=== PATIENT | male | born 1980 | race Caucasian/White ===

== ENCOUNTER 2018-03-14 04:08 | Emergency (ER) | payer MEDICAID ==
[~2018-03-14] VITALS: Ht 180.3 cm; Wt 69.4 kg
[2018-03-14 04:41] VITALS: BP 131/83
[2018-03-14] MEDS ORDERED: DEXAMETHASONE SOD PHOS 10MG/1ML VIAL INJ ONE (05:37)
[2018-03-14] MEDS ORDERED: KETOROLAC TROMETH 60MG/2ML VIAL IM ONE ×2 (05:38→06:00)
[2018-03-14] MEDS ORDERED: DEXAMETHASONE SOD PHOS 10MG/1ML VIAL INJ IM ONE (06:00)
== END 2018-03-14 05:50 | disposition home or self-care (01) ==
LOC: ER 04:09
DX: S46.811A Strain of other muscles, fascia and tendons at shoulder and upper arm level, right arm, initial encounter (principal); F17.210 Nicotine dependence, cigarettes, uncomplicated; Z88.5 Allergy status to narcotic agent; X58.XXXA Exposure to other specified factors, initial encounter; Y93.89 Activity, other specified; Y99.8 Other external cause status; Y92.89 Other specified places as the place of occurrence of the external cause
CPT/HCPCS: 73030; 96372; 99284; J1100; J1885

== ENCOUNTER 2019-11-06 09:19 | Emergency (ER) | payer SELFPAY ==
[~2019-11-06] VITALS: Ht 180.3 cm; Wt 68.0 kg
[2019-11-06 09:24] VITALS: BP 152/84
[2019-11-06] MEDS ORDERED: KETOROLAC TROMETH 60MG/2ML VIAL IM ONE (10:15)
[2019-11-06] MEDS ORDERED: cefTRIAXone SOD 1,000 MG VL IM ONE (10:15)
== END 2019-11-06 10:38 | disposition home or self-care (01) ==
LOC: ER 09:19
DX: K04.7 Periapical abscess without sinus (principal); F17.210 Nicotine dependence, cigarettes, uncomplicated
CPT/HCPCS: 41800; 96372; 99284; J0696; J1885

== ENCOUNTER 2021-01-18 22:45 | Inpatient (IN) | payer MEDICAID, OTHER ==
[~2021-01-18] VITALS: Ht 177.8 cm; Wt 83.1 kg
[2021-01-19 01:38] LABS: Basophils # (auto) 0.1 10 ^3/uL (0-0.2); Basophils % (auto) 1.3 % (0.0-2.0); Eosinophils # (auto) 0.1 10 ^3/uL (0-0.8); Eosinophils % (auto) 0.8 % (0.0-7.0); Hematocrit 39.9 % (41.0-53.0); Hemoglobin 13.9 g/dL (13.5-17.5); Lymphocytes # (auto) 2.2 10 ^3/uL (0.4-5.4); Lymphocytes % (auto) 23.8 % (10.0-50.0); Mean Corpuscular Hemoglobin 33.2 pg (28.0-32.0); Mean Corpuscular Hgb Conc. 34.7 g/dL (32.0-36.0); Mean Corpuscular Volume 95.6 fL (80.0-100.0); Monocytes % (auto) 10.9 % (0.0-12.0); Neutrophils # (auto) 5.8 10 ^3/uL (1.6-8.6); Neutrophils % (auto) 63.2 % (37.0-80.0); Nucleated Red Blood Cells % 0.1 %; Red Blood Cells 4.17 10^6/uL (4.5-5.90); Red Cell Distribution Width 12.8 % (11.8-14.3); White Blood Cell 9.2 10^3/uL (4.4-10.8)
[2021-01-19 01:52] LABS: Alanine Aminotransferase 53 U/L (16-61); Albumin 4.3 g/dL (3.4-5.0); Anion Gap 6 (5-15); Aspartate Aminotransferase 26 U/L (15-37); BUN/Creatinine Ratio 24.4; Blood Urea Nitrogen 22 mg/dL (7-18); Calcium 8.6 mg/dL (8.5-10.1); Carbon Dioxide 24 mmol/L (21-32); Chloride 111 mmol/L (98-107); GFR African American 121 mL/min; GFR Non-African American 100 mL/min; Glucose 87 mg/dL (74-106); Magnesium 2.2 mg/dL (1.6-2.6); Potassium 3.6 mmol/L (3.5-5.1); Sodium 141 mmol/L (136-145)
[2021-01-19 01:57] LABS: Alkaline Phosphatase 64 U/L (45-117); Bilirubin, Total 0.3 mg/dL (0.2-1.0); Total Protein 7.5 g/dL (6.4-8.2)
[2021-01-19] MEDS ORDERED: ASPirin 325 MG TAB PO ONE (03:00)
[2021-01-19] MEDS ORDERED: ACETAMINOPHEN 325 MG TAB PO PRN (05:45)
[2021-01-19] MEDS ORDERED: ONDANSETRON HCL 4 MG/2 ML VIAL IV PRN (05:45)
[2021-01-19 08:50] VITALS: BP 139/86
[2021-01-19] MEDS: FAMOTIDINE 20 MG TAB PO SCH ×3 (09:17→21:08)
[2021-01-19] MEDS: NITROGLYCERIN 0.4 MG SL TAB SL PRN ×3 (09:26→09:36)
[2021-01-19] MEDS: MORPHINE SULF INJ 2 MG/ML SYRINGE 1ML IV PRN ×2 (10:00→16:32)
[2021-01-19 12:46] VITALS: BP 118/72
[2021-01-19 16:43] VITALS: BP 118/74
[2021-01-19] MEDS ORDERED: NITROGLYCERIN 0.2MG/HR TOPICAL PATCH TD ONE (17:45)
[2021-01-19] MEDS: ATORVASTATIN 20 MG TAB PO SCH (21:08)
[2021-01-19 22:00] VITALS: BP 123/70
[2021-01-20 05:00] VITALS: BP 105/60
[2021-01-20 06:47] LABS: Basophils # (auto) 0.1 10 ^3/uL (0-0.2); Basophils % (auto) 1.7 % (0.0-2.0); Eosinophils # (auto) 0.1 10 ^3/uL (0-0.8); Eosinophils % (auto) 2.1 % (0.0-7.0); Hematocrit 41.7 % (41.0-53.0); Hemoglobin 14.5 g/dL (13.5-17.5); Lymphocytes # (auto) 1.4 10 ^3/uL (0.4-5.4); Mean Corpuscular Hemoglobin 33.5 pg (28.0-32.0); Mean Corpuscular Hgb Conc. 34.7 g/dL (32.0-36.0); Mean Corpuscular Volume 96.5 fL (80.0-100.0); Monocytes # (auto) 0.8 10 ^3/uL (0-1.3); Neutrophils # (auto) 3.6 10 ^3/uL (1.6-8.6); Neutrophils % (auto) 59.2 % (37.0-80.0); Nucleated Red Blood Cells % 0.1 %; Red Blood Cells 4.32 10^6/uL (4.5-5.90)
[2021-01-20 07:07] LABS: Calcium 8.8 mg/dL (8.5-10.1); Potassium 3.9 mmol/L (3.5-5.1)
[2021-01-20 07:10] LABS: BUN/Creatinine Ratio 21.7
[2021-01-20 09:00] VITALS: BP 122/70
[2021-01-20] MEDS ORDERED: ASPirin 81 mg TAB PO SCH (10:00)
[2021-01-20] MEDS ORDERED: ADENOSINE 70 MG in GIVE UN-DILUTED 0 ML IV STA (11:15)
[2021-01-20] MEDS: ASPirin 81 mg TAB PO SCH (11:45)
[2021-01-20] MEDS: MORPHINE SULF INJ 2 MG/ML SYRINGE 1ML IV PRN ×2 (12:52→21:22)
[2021-01-20 13:00] VITALS: BP 126/75
[2021-01-20 17:00] VITALS: BP 111/68
[2021-01-20] MEDS ORDERED: NITROGLYCERIN 0.2MG/HR TOPICAL PATCH TD SCH (18:00)
[2021-01-20 22:00] VITALS: BP 134/72
[2021-01-20] MEDS: FAMOTIDINE 20 MG TAB PO SCH (22:01)
[2021-01-20] MEDS: ATORVASTATIN 20 MG TAB PO SCH (22:01)
[2021-01-20] MEDS: TEMAZEPAM 15 MG CAP PO PRN (22:02)
[2021-01-21] MEDS ORDERED: NITROGLYCERIN 0.4 MG SL TAB SL PRN (04:30)
[2021-01-21 05:00] VITALS: BP 106/73
[2021-01-21 06:56] LABS: Basophils # (auto) 0.1 10 ^3/uL (0-0.2); Eosinophils # (auto) 0.2 10 ^3/uL (0-0.8); Hematocrit 43.2 % (41.0-53.0); Hemoglobin 15.1 g/dL (13.5-17.5); Lymphocytes # (auto) 1.6 10 ^3/uL (0.4-5.4); Lymphocytes % (auto) 22.8 % (10.0-50.0); Mean Corpuscular Hemoglobin 33.5 pg (28.0-32.0); Mean Corpuscular Hgb Conc. 34.9 g/dL (32.0-36.0); Mean Corpuscular Volume 95.9 fL (80.0-100.0); Monocytes # (auto) 0.8 10 ^3/uL (0-1.3); Monocytes % (auto) 11.4 % (0.0-12.0); Neutrophils # (auto) 4.3 10 ^3/uL (1.6-8.6); Neutrophils % (auto) 61.8 % (37.0-80.0); Nucleated Red Blood Cells % 0.1 %; Red Cell Distribution Width 12.9 % (11.8-14.3); White Blood Cell 6.9 10^3/uL (4.4-10.8)
[2021-01-21 07:12] LABS: INR 1.07 (0.9-1.15); Partial Thromboplastin Time 26.6 sec (23.0-31.2)
[2021-01-21 07:28] LABS: Potassium 3.8 mmol/L (3.5-5.1)
[2021-01-21 07:41] LABS: BUN/Creatinine Ratio 21.7; Calcium 8.6 mg/dL (8.5-10.1)
[2021-01-21 09:00] VITALS: BP 101/69
[2021-01-21] MEDS ORDERED: IODIXANOL 320MG/ML 100ML BTL IV ONE (10:50)
[2021-01-21] MEDS ORDERED: HEPARIN IN NS 1000Units/500mL 0 ML ONE (10:50)
[2021-01-21] MEDS ORDERED: LIDOCAINE 2%HCL (LOCAL ANESTH.) INJ 20ML MDV ONE ×2 (10:50→12:55)
[2021-01-21] MEDS ORDERED: SODIUM CHL 0.9% 0 ML ONE (12:55)
[2021-01-21] MEDS ORDERED: IOHEXOL 350 MG/ML 100ML IJ ONE (12:55)
[2021-01-21] MEDS ORDERED: fentaNYL CITRATE 100 MCG/2 ML VL ONE (12:55)
[2021-01-21] MEDS ORDERED: MIDAZOLAM HCL 1MG/1ML-2 ML VIAL ONE (12:55)
[2021-01-21] MEDS ORDERED: ANGIOMAX 250 MG VIAL IV ONE (12:55)
[2021-01-21] MEDS ORDERED: HEPARIN SODIUM (PORCINE) 5000 UNITS/ML 1ML VIAL ONE (12:56)
[2021-01-21] MEDS ORDERED: VERAPAMIL 2.5MG/ML INJ 2ML VIAL IV ONE (12:57)
[2021-01-21] MEDS: FAMOTIDINE 20 MG TAB PO SCH ×2 (16:30→21:21)
[2021-01-21] MEDS: ASPirin 81 mg TAB PO SCH (16:30)
[2021-01-21 17:00] VITALS: BP 126/72
[2021-01-21] MEDS: SODIUM CHLOR 0.9% PF (SALINE LOCK) 10ML VIAL/SYR IV SCH (21:21)
[2021-01-21] MEDS: ATORVASTATIN 20 MG TAB PO SCH (21:21)
[2021-01-21] MEDS: TEMAZEPAM 15 MG CAP PO PRN (21:21)
[2021-01-21 23:15] VITALS: BP 134/71
[2021-01-22 05:36] VITALS: BP 94/44
[2021-01-22] MEDS: SODIUM CHLOR 0.9% PF (SALINE LOCK) 10ML VIAL/SYR IV SCH (06:00)
[2021-01-22 09:00] VITALS: BP 121/82
[2021-01-22] MEDS: FAMOTIDINE 20 MG TAB PO SCH (09:08)
[2021-01-22] MEDS: ASPirin 81 mg TAB PO SCH (09:08)
== END 2021-01-22 13:24 | DRG 287 ==
LOC: EEVIPCON 22:45 → EDBD 22:45 → ER 22:45 → TELE 01-19 05:45 → TELE-WESTW 01-19 08:43
PROVIDERS: ADMIT Nurse Practitioner; ATTEND Internal Medicine Nephrology
PROC: 4A023N7 Measurement of Cardiac Sampling and Pressure, Left Heart, Percutaneous Approach (ICD-10-PCS; principal; 2021-01-21)
PROC: B211YZZ Fluoroscopy of Multiple Coronary Arteries using Other Contrast (ICD-10-PCS; 2021-01-21)
PROC: B215YZZ Fluoroscopy of Left Heart using Other Contrast (ICD-10-PCS; 2021-01-21)
DX: R07.89 Other chest pain (principal); F41.9 Anxiety disorder, unspecified; I10 Essential (primary) hypertension; E78.5 Hyperlipidemia, unspecified; Z20.822 Contact with and (suspected) exposure to COVID-19; F15.10 Other stimulant abuse, uncomplicated; Z82.49 Family history of ischemic heart disease and other diseases of the circulatory system; Z87.891 Personal history of nicotine dependence; Z95.1 Presence of aortocoronary bypass graft; Z79.899 Other long term (current) drug therapy; Z88.5 Allergy status to narcotic agent
CPT/HCPCS: 36415; 71045; 78452; 80048; 80053; 83735; 84484; 85025; 85610; 85730; 87426; 93005; 93017; 93306; 93458; 96374; 96375; 99152; G0378; J0153; J2250; J2405; Q9967